=== PATIENT | female | born 1990 | race Caucasian/White ===

== ENCOUNTER 2025-04-08 19:20 | Observation (INO) | payer BC, OTHER, SELFPAY ==
--- OUTSIDE RECORDS SUMMARY | 2025-04-08 19:24 | XMS REPORT | Continuity of Care Document ---
Author Name Unknown Address [address] [facility] [place] [address] [facility] Address [address] [facility] [place] [address] Care Team Providers Care Girl Friday Name Role Phone Martha Lee Dr. Primary Care Physician FELIX RIVAS Attending Clinician Unavailable FELIX RIVAS Attending Clinician Unavailable Vika Christopher PA-C Attending Clinician [phone] Unknown, Attending Attending Clinician Unavailab VIKA Ardon Attending Clinician Unavailable Doctor Unassigned, Wiggins Attending Clinician ELYSIA Mcelroy Attending Clinician ELYSIA Carbone Attending Clinician Devi Madden, [facility] Attending Clinician UnavailMARTÍNEZ Drake Attending Clinician Unavailable LORI SCHREIBER Attending Clinician Unavailable ALLA CARBAJAL Attending Clinician Unavailable ALLA CARBAJAL Attending Clinician Unavailable VIET PEREA Attending Clinician UnavailFELIX Capps Admitting Clinician Unavailable Felix Rivas MD Admitting Clinician Payers Payer Name Policy Type Policy Number Effective Date Expirati on Date Source [employer] MEDICA[employer] [id number] 2019 00:00:00 Problems Condition Name Condition Details Condition Category Status Onset Date Resolution Date Last Treatment Date Treating Clinician Comments Source Status post bilateral salpingect nadeen Status post bilateral salpingect nadeen Disease Active 07-19 00:00: 00 [facility] Encounter for IUD removal Encounter for IUD removal Disease Active 07-19 00:00: 00 [facility] Encounter for tubal ligation Encounter for tubal ligation Disease Active 2021-07 00:00: 00 Overview: Formattin g of this note might be different from the original. Added automatic ally from request for surgery [id number] [facility] Presence of 13.5 mg levonorges trel-relea sing intrauteri ne device (IUD) Presence of 13.5 mg levonorges trel-relea sing intrauteri ne device (IUD) Disease Active 2019-07 0-14 00:00: 00 [facility] Infected nail bed of toe, unspecifie d laterality Infected nail bed of toe, unspecifie d laterality Disease Active 11-26 00:00: 00 [facility] Ingrown nail of great toe of left foot Ingrown nail of great toe of left foot Disease Active 11-26 00:00: 00 [facility] Multiparit y Multiparit y Disease Active 2018-07 2-13 00:00: 00 [facility] BMI 29.0-29.9, adult BMI 29.0-29.9, adult Disease Active - 00:00: 00 [facility] BMI 29.0-29.9, adult BMI 29.0-29.9, adult Disease Active -29 00:00: 00 [facility] Rh negative state in antepartum period Rh negative state in antepartum period Disease Active 4-15 00:00: 00 [facility] Encounter for gynecologi cintia examinatio n without abnormal finding Encounter for gynecologi cintia examinatio n without abnormal finding Problem Active [facility] Depot contracept ion Depot contracept ion Diagnosis Active [facility] Allergies, Adverse Reactions, Alerts Allergy Name Allergy Type Status Severity Reaction(s) Onset Date Inactive Date Treating Clinician Comments Source NO KNOWN ALLERGIE S Drug Class Active [facility] Social History Social Habit Start Date Stop Date Quantity Comments Source History SDOH Alcohol Frequency [facility] History SDOH Alcohol Std Drinks [facility] History SDOH Alcohol Binge [facility] Exposure to SARS-CoV-2 (event) 2022-11-20 00:00:00 2022-11-30 09:10:00 Not sure [facility] History of Social function 2022-07-19 00:00:00 2022-07-19 00:00:00 [facility] Education 2020-02-10 00:00:00 2020-02-10 00:00:00 14 [facility] Alcohol intake 2020-02-03 00:00:00 2020-02-03 00:00:00 0 /d [facility] Tobacco use and exposure 2014-10-21 00:00:00 2014-10-21 00:00:00 Smokeless tobacco non-user [facility] Alcohol Comment 2014-10-21 00:00:00 2014-10-21 00:00:00 former drinker- no longer uses [facility] Sex Assigned At 1990 00:00:00 1990 00:00:00 [facility] Smoking Status Start Date Stop Date Source Never smoked tobacco [facility] Medications Ordered Medication Name Filled Medication Name Start Date Stop Date Current Medication? Ordering Clinician Indication Dosage Frequency Signature (SIG) Comments Components Source sertraline 50 mg tablet 2- 00:00: 00 Yes 1mg Mick F Jameson Strattera 18 mg capsule 2024-0 2- 00:00: 00 Yes 1mg Mick F Jameson sertraline 50 mg tablet 2- 00:00: 00 Yes 1mg Mick F Jameson Strattera 18 mg capsule 2-11 00:00: 00 Yes 1mg Mick Barba sertraline 50 mg tablet - 00:00: 00 Yes 1mg Mick Barba sertraline 50 mg tablet 1-08 00:00: 00 Yes 1mg Mick Barba sertraline 50 mg tablet 2023-07 0-09 00:00: 00 Yes 1mg Mick Barba sertraline 50 mg tablet 9-05 00:00: 00 Yes 1mg Mick Barba sertraline 50 mg tablet 01-09 00:00: 00 Yes 1mg Mick Barba trazodone 50 mg tablet 01-09 00:00: 00 Yes 51mg Mick Barba fluticasone propionate 50 mcg/actuati on nasal spray 11-30 00:00: 00 Yes [id number] 2{spray } Use 2 Sprays in each nostril in the morning. [facility] bromphenira mine-pseudo ephedrine-D M (BROMFED DM) 2-30-10 mg/5 mL syrup 11-30 00:00: 00 Yes [id number] 5mL Take 5 mL by mouth 3 (three) times daily as needed for Cough. [facility] cetirizine 10 mg tablet 08-02 16:26: 49 Yes 10mg Take 10 mg by mouth at bedtime as needed for Allergies. [facility] cetirizine 10 mg tablet 08-02 12:54: 20 Yes 10mg Take 10 mg by mouth at bedtime as needed for Allergies. [facility] HYDROmorphO ne (DILAUDID) injection 0.2 mg 07-19 16:46: 12 Yes .2mg 0.2 mg, Slow IV Push, Q5MIN PRN, 10 doses, Starting on Mon07/19/22 at 1046, Until Discontinu ed, Routine, Pain (scale 7-10), PACU
Us e approved by (Faculty): PACU USE -ANESTHESI A SERVICE-HY DROMORPHON E INJECTIONS [facility] FENTanyl PF (SUBLIMAZE (PF)) injection 25 mcg 07-19 16:46: 12 Yes 25ug 25 mcg, Slow IV Push, Q5MIN PRN, 4 doses, Starting on Mon07/19/22 at 1046, Until Discontinu ed, Routine, Pain (scale 4-6), PACU [facility] morpHINE (4 mg/mL) injection 2 mg 07-19 16:25: 18 Yes 2mg 2 mg, Slow IV Push, Q5MIN PRN, 5 doses, Starting on Mon07/19/22 at 1025, Until Discontinu ed, Routine, Pain (scale 4-6), PACU [facility] ondansetron (ZOFRAN (PF)) injection 4 mg 07-19 16:25: 18 Yes 4mg 4 mg, Slow IV Push, PRN, 1 dose, Starting on Mon07/19/22 at 1025, Until Discontinu ed, Routine, Nausea and Vomiting (N/V), PACU [facility] bupivacaine -epinephrin e-pf (SENSORCAIN E W/EPINEPHRI NE) 0.25 %-1:200,000 injection 07-19 15:24: 00 07-19 17:24 :42 No PRN, Starting on Mon07/19/22 at 0924, Until Mon07/19/22 at 1124, Routine, Intra-op [facility] sodium chloride 0.9 % irrigation solution 07-19 15:24: 00 07-19 17:24 :42 No PRN, Starting on Mon07/19/22 at 0924, Until Mon07/19/22 at 1124, Intra-op [facility] lactated ringers IV infusion 1,000 mL 07-19 14:30: 00 07-19 14:56 :00 No 1000mL at 42 mL/hr, 1,000 mL, IV Infusion, ONCE, 1 dose, On Mon07/19/22 at 0830, Routine, DSU Pre-op [facility] cetirizine (ZYRTEC) 10 mg tablet 07-19 11:38: 48 Yes 10mg Take 10 mg by mouth at bedtime as needed for Allergies. [facility] simethicone 80 mg chewable tablet 07-19 00:00: 00 08-02 00:00 :00 No [id number] 80mg Take 1 tablet by mouth after meals and at bedtime. [facility] ibuprofen 600 mg tablet 07-19 00:00: 00 08-02 00:00 :00 No [id number] 600mg Take 1 tablet by mouth every 6 (six) hours as needed for Pain (scale 1-3) or Pain (scale 4-6). [facility] acetaminoph en (TYLENOL) 325 mg tablet 07-19 00:00: 00 08-02 00:00 :00 No [id number] 650mg Take 2 tablets by mouth every 6 (six) hours as needed for Pain (scale 1-3) or Pain (scale 4-6). [facility] HYDROcodone -acetaminop hen 5-325 mg tablet 07-19 00:00: 00 07-27 05:59 :00 No [id number] 1{tbl} Take 1 tablet by mouth every 6 (six) hours as needed for Pain (scale 7-10) for up to 7 days. Indication s: acute pain [facility] cetirizine (ZYRTEC) 10 mg tablet 07-15 10:19: 31 Yes 10mg Take 10 mg by mouth at bedtime as needed for Allergies. [facility] cetirizine HCl (ZYRTEC ORAL) 11-17 09:54: 41 11-17 00:00 :00 No Take by mouth. [facility] SERTraline (ZOLOFT) 25 mg tablet 11-17 00:00: 00 Yes [id number] 25mg Take 1 tablet by mouth daily. [facility] hydrOXYzine 25 mg tablet 11-17 00:00: 00 08-02 00:00 :00 No [id number] 25mg Take 1 tablet by mouth at bedtime. [facility] sertraline 50 mg tablet 0 9- 00:00: 00 Yes 15mg Mick Barba trazodone 50 mg tablet 0 9- 00:00: 00 Yes 1mg Mick Barba sertraline 50 mg tablet 0 8-06 00:00: 00 Yes 15mg Mick Barba trazodone 50 mg tablet 0 8-06 00:00: 00 Yes 1mg Mick Barba sertraline 50 mg tablet 0 6- 00:00: 00 Yes 15mg Mick Barba trazodone 50 mg tablet 0 6- 00:00: 00 Yes 1mg Mick Barba sertraline 50 mg tablet 5-08 00:00: 00 Yes 15mg Mick Barba trazodone 50 mg tablet 5-08 00:00: 00 Yes 1mg Mick Barba mupirocin 2 % ointment 5- 00:00: 00 11-17 00:00 :00 No [id number] Apply to area(s) 3 (three) times daily. [facility] sertraline 50 mg tablet 4-10 00:00: 00 Yes 1mg Mick Barba hydroxyzine HCl 50 mg tablet 0 4-10 00:00: 00 Yes 12mg Mick Barba sertraline 50 mg tablet 0 3-13 00:00: 00 Yes 1mg Mick Barba hydroxyzine HCl 50 mg tablet 0 3-13 00:00: 00 Yes 15mg Mick Barba sertraline 50 mg tablet 0 2-27 00:00: 00 Yes 1mg Mick Barba hydroxyzine HCl 50 mg tablet 0 2-27 00:00: 00 Yes 1mg Mick Barba sertraline 25 mg tablet 0 2-13 00:00: 00 Yes 1mg Mick Barba hydroxyzine HCl 25 mg tablet 0 2-13 00:00: 00 Yes 1mg Mick Barba hydrOXYzine 25 mg tablet 0 2-13 00:00: 00 00:00 :00 No 50mg Take 50 mg by mouth at bedtime. [facility] SERTraline 25 mg tablet 213 00:00: 00 11-17 00:00 :00 No 50mg Take 50 mg by mouth every morning. [facility] acetaminoph en 650 mg CR tablet 11-26 00:00: 00 10-21 00:00 :00 No [id number] 650mg Take 1 tablet by mouth every 8 (eight) hours as needed for Pain or Fever. [facility] hydroxyzine HCl 50 mg tablet 02-05 00:00: 00 Yes 12mg Mick Negar Barba Zoloft 50 mg tablet 02-05 00:00: 00 Yes 1mg Mick Negar Barba hydroxyzine HCl 50 mg tablet 01-03 00:00: 00 Yes 51mg Mick Negar Barba Zoloft 50 mg tablet 01-03 00:00: 00 Yes 1mg Mick Barba cetirizine 10 mg capsule 12-04 00:00: 00 Yes 1mg Mick Barba hydroxyzine HCl 50 mg tablet 12-04 00:00: 00 Yes 51mg Mick Negar Barba Zoloft 50 mg tablet 12-04 00:00: 00 Yes 1mg Mick Barba Nexplanon Nexplanon Yes Jason Rejuan m not defined [facility] Immunizations Ordered Immunization Name Filled Immunization Name Date Status Comments Source Influenza Virus Vaccine Quad .5 mL IM 6+ MO (FLUZONE/FLULAVAL/F LUARIX) 2021-11-30 00:00:00 Completed [facility] Influenza Virus Vaccine 2021-11-30 00:00:00 Completed [facility] TDAP (ADACEL) VACCINE 2021-11-30 00:00:00 Completed [facility] Rho (d) Immune Globulin 2021-11-30 00:00:00 Completed [facility] Rho (d) Immune Globulin 2021-11-30 00:00:00 Completed [facility] Influenza Virus Vaccine 2020-04-20 00:00:00 Completed [facility] Influenza Virus Vaccine 2020-04-20 00:00:00 Completed [facility] Influenza Virus Vaccine 2020-04-20 00:00:00 Completed [facility] Influenza Virus Vaccine 2020-04-20 00:00:00 Completed [facility] Influenza Virus Vaccine 2020-04-20 00:00:00 Completed [facility] Influenza Virus Vaccine 2020-04-20 00:00:00 Completed [facility] Influenza Virus Vaccine 2020-04-20 00:00:00 Completed [facility] Influenza Virus Vaccine 2020-04-20 00:00:00 Completed [facility] Influenza Virus Vaccine 2020-04-20 00:00:00 Completed [facility] Influenza Virus Vaccine 2020-04-20 00:00:00 Completed [facility] Influenza Virus Vaccine 2020-04-20 00:00:00 Completed [facility] Influenza Virus Vaccine 2020-04-20 00:00:00 Completed [facility] Influenza Virus Vaccine 2020-04-20 00:00:00 Completed [facility] Influenza Virus Vaccine 2020-04-20 00:00:00 Completed [facility] Influenza Virus Vaccine 2020-04-20 00:00:00 Completed [facility] Influenza Virus Vaccine 2020-04-20 00:00:00 Completed [facility] Influenza Virus Vaccine 2020-04-20 00:00:00 Completed [facility] Rho (d) Immune Globulin 2020-02-11 00:00:00 Completed [facility] Rho (d) Immune Globulin 2020-02-11 00:00:00 Completed [facility] Rho (d) Immune Globulin 2020-02-11 00:00:00 Completed [facility] Rho (d) Immune Globulin 2020-02-11 00:00:00 Completed [facility] Rho (d) Immune Globulin 2020-02-11 00:00:00 Completed [facility] Rho (d) Immune Globulin 2020-02-11 00:00:00 Completed [facility] Rho (d) Immune Globulin 2020-02-11 00:00:00 Completed [facility] Rho (d) Immune Globulin 2020-02-11 00:00:00 Completed [facility] Rho (d) Immune Globulin 2020-02-11 00:00:00 Completed [facility] Rho (d) Immune Globulin 2020-02-11 00:00:00 Completed [facility] Rho (d) Immune Globulin 2020-02-11 00:00:00 Completed [facility] Rho (d) Immune Globulin 2020-02-11 00:00:00 Completed [facility] Rho (d) Immune Globulin 2020-02-11 00:00:00 Completed [facility] Rho (d) Immune Globulin 2020-02-11 00:00:00 Completed [facility] Rho (d) Immune Globulin 2020-02-11 00:00:00 Completed [facility] Rho (d) Immune Globulin 2020-02-11 00:00:00 Completed [facility] Rho (d) Immune Globulin 2020-02-11 00:00:00 Completed [facility] Influenza Virus Vaccine Quad .5 mL IM 6+ MO (FLUZONE/FLULAVAL/F LUARIX) 2020-02-07 00:00:00 Completed [facility] Influenza Virus Vaccine 2020-02-07 00:00:00 Completed [facility] TDAP (ADACEL) VACCINE 2020-02-07 00:00:00 Completed [facility] Rho (d) Immune Globulin 2020-02-07 00:00:00 Completed [facility] Rho (d) Immune Globulin 2019-11-20 00:00:00 Completed [facility] Rho (d) Immune Globulin 2019-11-20 00:00:00 Completed [facility] Rho (d) Immune Globulin 2019-11-20 00:00:00 Completed [facility] Rho (d) Immune Globulin 2019-11-20 00:00:00 Completed [facility] Rho (d) Immune Globulin 2019-11-20 00:00:00 Completed [facility] Rho (d) Immune Globulin 2019-11-20 00:00:00 Completed [facility] Rho (d) Immune Globulin 2019-11-20 00:00:00 Completed [facility] Rho (d) Immune Globulin 2019-11-20 00:00:00 Completed [facility] Rho (d) Immune Globulin 2019-11-20 00:00:00 Completed [facility] Rho (d) Immune Globulin 2019-11-20 00:00:00 Completed [facility] Rho (d) Immune Globulin 2019-11-20 00:00:00 Completed [facility] Rho (d) Immune Globulin 2019-11-20 00:00:00 Completed [facility] Rho (d) Immune Globulin 2019-11-20 00:00:00 Completed [facility] Rho (d) Immune Globulin 2019-11-20 00:00:00 Completed [facility] Rho (d) Immune Globulin 2019-11-20 00:00:00 Completed [facility] Rho (d) Immune Globulin 2019-11-20 00:00:00 Completed [facility] Rho (d) Immune Globulin 2019-11-20 00:00:00 Completed [facility] TDAP (ADACEL) VACCINE 2019-11-18 00:00:00 Completed [facility] TDAP (ADACEL) VACCINE 2019-11-18 00:00:00 Completed [facility] TDAP (ADACEL) VACCINE 2019-11-18 00:00:00 Completed [facility] TDAP (ADACEL) VACCINE 2019-11-18 00:00:00 Completed [facility] TDAP (ADACEL) VACCINE 2019-11-18 00:00:00 Completed [facility] TDAP (ADACEL) VACCINE 2019-11-18 00:00:00 Completed [facility] TDAP (ADACEL) VACCINE 2019-11-18 00:00:00 Completed [facility] TDAP (ADACEL) VACCINE 2019-11-18 00:00:00 Completed [facility] TDAP (ADACEL) VACCINE 2019-11-18 00:00:00 Completed [facility] TDAP (ADACEL) VACCINE 2019-11-18 00:00:00 Completed [facility] TDAP (ADACEL) VACCINE 2019-11-18 00:00:00 Completed [facility] TDAP (ADACEL) VACCINE 2019-11-18 00:00:00 Completed [facility] TDAP (ADACEL) VACCINE 2019-11-18 00:00:00 Completed [facility] TDAP (ADACEL) VACCINE 2019-11-18 00:00:00 Completed [facility] TDAP (ADACEL) VACCINE 2019-11-18 00:00:00 Completed [facility] TDAP (ADACEL) VACCINE 2019-11-18 00:00:00 Completed [facility] TDAP (ADACEL) VACCINE 2019-11-18 00:00:00 Completed [facility] Influenza Virus Vaccine Quad .5 mL IM 6+ MO 2019-06-21 00:00:00 Completed [facility] Influenza Virus Vaccine 2019-06-21 00:00:00 Completed [facility] Influenza Virus Vaccine Quad .5 mL IM 6+ MO 2019-06-21 00:00:00 Completed [facility] Influenza Virus Vaccine 2019-06-21 00:00:00 Completed [facility] Influenza Virus Vaccine Quad .5 mL IM 6+ MO 2019-06-21 00:00:00 Completed [facility] Influenza Virus Vaccine 2019-06-21 00:00:00 Completed [facility] Influenza Virus Vaccine Quad .5 mL IM 6+ MO 2019-06-21 00:00:00 Completed [facility] Influenza Virus Vaccine 2019-06-21 00:00:00 Completed [facility] Influenza Virus Vaccine Quad .5 mL IM 6+ MO 2019-06-21 00:00:00 Completed [facility] Influenza Virus Vaccine 2019-06-21 00:00:00 Completed [facility] Influenza Virus Vaccine Quad .5 mL IM 6+ MO 2019-06-21 00:00:00 Completed [facility] Influenza Virus Vaccine 2019-06-21 00:00:00 Completed [facility] Influenza Virus Vaccine Quad .5 mL IM 6+ MO 2019-06-21 00:00:00 Completed [facility] Influenza Virus Vaccine 2019-06-21 00:00:00 Completed [facility] Influenza Virus Vaccine Quad .5 mL IM 6+ MO 2019-06-21 00:00:00 Completed [facility] Influenza Virus Vaccine 2019-06-21 00:00:00 Completed [facility] Influenza Virus Vaccine Quad .5 mL IM 6+ MO 2019-06-21 00:00:00 Completed [facility] Influenza Virus Vaccine 2019-06-21 00:00:00 Completed [facility] Influenza Virus Vaccine Quad .5 mL IM 6+ MO 2019-06-21 00:00:00 Completed [facility] Influenza Virus Vaccine 2019-06-21 00:00:00 Completed [facility] Influenza Virus Vaccine Quad .5 mL IM 6+ MO 2019-06-21 00:00:00 Completed [facility] Influenza Virus Vaccine 2019-06-21 00:00:00 Completed [facility] Influenza Virus Vaccine Quad .5 mL IM 6+ MO 2019-06-21 00:00:00 Completed [facility] Influenza Virus Vaccine 2019-06-21 00:00:00 Completed [facility] Influenza Virus Vaccine Quad .5 mL IM 6+ MO 2019-06-21 00:00:00 Completed [facility] Influenza Virus Vaccine 2019-06-21 00:00:00 Completed [facility] Influenza Virus Vaccine Quad .5 mL IM 6+ MO 2019-06-21 00:00:00 Completed [facility] Influenza Virus Vaccine 2019-06-21 00:00:00 Completed [facility] Influenza Virus Vaccine Quad .5 mL IM 6+ MO 2019-06-21 00:00:00 Completed [facility] Influenza Virus Vaccine 2019-06-21 00:00:00 Completed [facility] Influenza Virus Vaccine Quad .5 mL IM 6+ MO 2019-06-21 00:00:00 Completed [facility] Influenza Virus Vaccine 2019-06-21 00:00:00 Completed [facility] Influenza Virus Vaccine Quad .5 mL IM 6+ MO 2019-06-21 00:00:00 Completed [facility] Influenza Virus Vaccine 2019-06-21 00:00:00 Completed [facility] Influenza Virus Vaccine 2009-04-09 00:00:00 Completed [facility] HPV 2009-03-19 00:00:00 Completed [facility] HPV 2009-01-16 00:00:00 Completed [facility] TDAP 2009-01-16 00:00:00 Completed [facility] Vital Signs Vital Name Observation Time Observation Value Comments S ource Systolic blood pressure 2022-11-30 14:25:00 130 mm[Hg] [facility] Diastolic blood pressure 2022-11-30 14:25:00 87 mm[Hg] [facility] Heart rate 2022-11-30 14:25:00 86 /min [facility] Body temperature 2022-11-30 14:25:00 36.89 Ashtyn [facility] Respiratory rate 2022-11-30 14:25:00 17 /min [facility] Body height 2022-11-30 14:25:00 149.9 cm [facility] Body weight 2022-11-30 14:25:00 56.291 kg [facility] BMI 2022-11-30 14:25:00 25.07 kg/m2 [facility] Oxygen saturation in Arterial blood by Pulse oximetry 2022-11-30 14:25:00 98 /min [facility] Systolic blood pressure 2022-08-02 18:52:00 119 mm[Hg] [facility] Diastolic blood pressure 2022-08-02 18:52:00 78 mm[Hg] [facility] Heart rate 2022-08-02 18:52:00 77 /min [facility] Body temperature 2022-08-02 18:52:00 36.67 Ashtyn [facility] Body weight 2022-08-02 18:52:00 52.345 kg [facility] BMI 2022-08-02 18:52:00 23.31 kg/m2 [facility] Heart rate 2022-07-19 17:12:00 72 /min [facility] Oxygen saturation in Arterial blood by Pulse oximetry 2022-07-19 17:12:00 100 /min [facility] Respiratory rate 2022-07-19 17:11:00 19 /min [facility] Systolic blood pressure 2022-07-19 17:09:00 102 mm[Hg] [facility] Diastolic blood pressure 2022-07-19 17:09:00 48 mm[Hg] [facility] Body temperature 2022-07-19 16:19:00 36.39 Ashtyn [facility] Body weight 2022-07-15 16:00:00 54.432 kg [facility] BMI 2022-07-15 16:00:00 24.24 kg/m2 [facility] Heart rate 2022-07-19 17:12:00 72 /min [facility] Oxygen saturation in Arterial blood by Pulse oximetry 2022-07-19 17:12:00 100 /min [facility] Respiratory rate 2022-07-19 17:11:00 19 /min [facility] Systolic blood pressure 2022-07-19 17:09:00 102 mm[Hg] [facility] Diastolic blood pressure 2022-07-19 17:09:00 48 mm[Hg] [facility] Body temperature 2022-07-19 16:19:00 36.39 Ashtyn [facility] Body weight 2022-07-15 16:00:00 54.432 kg [facility] BMI 2022-07-15 16:00:00 24.24 kg/m2 [facility] Systolic blood pressure 2022-07-07 21:32:00 105 mm[Hg] [facility] Diastolic blood pressure 2022-07-07 21:32:00 66 mm[Hg] [facility] Heart rate 2022-07-07 21:32:00 57 /min Un[facility] Body temperature 2022-07-07 21:32:00 36.83 Asht[facility] Body height 2022-07-07 21:32:00 149.9 cm [facility] Body weight 2022-07-07 21:32:00 54.432 kg [facility] BMI 2022-07-07 21:32:00 24.24 kg/m2 [facility] Systolic blood pressure 2022-06-07 20:33:00 105 mm[Hg] [facility] Diastolic blood pressure 2022-06-07 20:33:00 68 mm[Hg] [facility] Heart rate 2022-06-07 20:33:00 66 /min Unive [facility] Body temperature 2022-06-07 20:33:00 36.72 Ashtyn [facility] Body height 2022-06-07 20:33:00 149.9 cm [facility] Body weight 2022-06-07 20:33:00 54.976 kg [facility] BMI 2022-06-07 20:33:00 24.48 kg/m2 [facility] Systolic blood pressure 2021-11-17 15:05:00 112 mm[Hg] [facility] Diastolic blood pressure 2021-11-17 15:05:00 75 mm[Hg] [facility] Heart rate 2021-11-17 15:05:00 69 /min [facility] Body temperature 2021-11-17 15:05:00 36.94 Ashtyn [facility] Respiratory rate 2021-11-17 15:05:00 18 /min [facility] Body height 2021-11-17 15:05:00 149.9 cm [facility] Body weight 2021-11-17 15:05:00 60.601 kg [facility] BMI 2021-11-17 15:05:00 26.98 kg/m2 [facility] BP Diastolic 2024-08-13 15:00:00 76 mm[Hg] Riley phen F Jameson Weight Measured 2024-08-13 15:00:00 139.00 pounds Mick F Jameson Height Measured 2024-08-13 15:00:00 60.43 inches Mick F Jameson Body Temperature 2024-08-13 15:00:00 97.70 degrees Mick F Jameson Heart Rate 2024-08-13 15:00:00 78.00 /min Nanci en F Jameson Respiratory Rate 2024-08-13 15:00:00 16.00 /min Mick F Jameson BP Systolic 2024-08-13 15:00:00 124 mm[Hg] Step hen F Jameson BP Systolic 2018-12-04 13:01:00 123 mm[Hg] Step hen F Jameson BP Diastolic 2018-12-04 13:01:00 75 mm[Hg] Riley phen F Jameson Weight Measured 2018-12-04 13:01:00 144.50 pounds Mick F Jameson Height Measured 2018-12-04 13:01:00 60.43 inches Mick F Jameson Body Temperature 2018-12-04 13:01:00 98.90 degrees Mick F Jameson Heart Rate 2018-12-04 13:01:00 104.00 /min Step hen F Jameson Respiratory Rate 2018-12-04 13:01:00 18.00 /min Mick F Jameson Procedures Procedure Date / Time Performed Performing Clinician Source POCT MOLECULAR STREP 2022-11-30 14:20:00 Unknown, Atte nding [facility] CONSENT/REFUSAL FOR DIAGNOSIS AND TREATMENT 2022-11-30 14:09:18 Doctor Unassigned, Wiggins [facility] STERILIZATION CONSENT FORM 2022-08-03 06:01:00 Doctor Unassigned, Wiggins [facility] LAPAROSCOPIC SALPINGECTOMY 2022-07-19 14:44:00 Felix Rivas [facility] INTRAUTERINE DEVICE REMOVAL 2022-07-19 14:44:00 Felix Rivas [facility] ASSIGNMENT OF BENEFITS 2022-07-18 14:16:23 Docto r Unassigned, Wiggins [facility] DSU PRE-OP 2022-07-07 06:01:00 Doctor Unass igned, Wiggins [facility] STERILIZATION CONSENT FORM 2022-06-07 06:01:00 Doctor Unassigned, Wiggins [facility] Encounters Start Date/Time End Date/Time Encounter Type Admission Type Attending [facility] Care Department Encounter ID Source 2021-05-07 09:59:43 Outpatient P [email or web address] YUNG [id number] [facility] 2024-09-24 14:15:00 2024-09-24 14:15:00 Outpatient R FELIX RIVAS VIEN [facility] [id number] [facility] 2024-08-13 14:52:11 2024-08-13 14:52:11 Outpatient [facility] [id number] Mick Negar Jameson 2024-08-13 00:00:00 2024-08-13 00:00:00 Outpatient Visit S[facility] [id number] Mick Negar Jameson 2024-08-06 11:06:12 2024-08-06 11:06:12 Outpatient SFA SFA [id number] Mick Negar Jameson 2024-05-14 11:42:07 2024-05-14 11:42:07 Outpatient SFA SFA [id number] Mick Barba 2024-04-17 15:05:47 2024-04-17 15:05:47 Outpatient SFA SFA [id number] Mick Barba 2024-03-13 17:44:10 2024-03-13 17:44:10 Outpatient [facility] [id number] Mick Barba 2024-01-10 17:10:31 2024-01-10 17:10:31 Outpatient [facility] [id number] Mick Barba 2023-12-06 11:28:04 2023-12-06 11:28:04 Outpatient [facility] [id number] Mick Barba 2022-12-27 00:00:00 2022-12-27 00:00:00 Refill Vika Christopher [facility] 1.2.840.114 350.1.13.10 4.2.7.2.686 [id number] [facility] 2022-11-30 09:20:00 2022-11-30 09:40:00 Urgent Care Vika Christopher Unknown, Attending [facility] 1.2.840.114 350.1.13.10 4.2.7.2.686 [id number] [facility] 2022-11-30 09:20:00 2022-11-30 09:20:00 Outpatient Grover GERSONVIKA KOEHLER [facility] [id number] [facility] 2022-11-30 00:00:00 2022-11-30 00:00:00 Orders Only Doctor Unassigned, Wiggins [facility] 1.2.840.114 350.1.13.10 4.2.7.2.686 [id number] [facility] 2022-11-21 10:30:00 2022-11-21 10:30:00 Outpatient ELYSIA HARRINGTON MARISOL [facility] [id number] [facility] 2022-08-03 00:00:00 2022-08-03 00:00:00 Orders Only Doctor Unassigned, Wiggins [facility] 1.2.840.114 350.1.13.10 4.2.7.2.686 [id number] [facility] 2022-08-02 13:00:00 2022-08-02 13:30:00 Office Visit Felix Rivas [facility] BUILD[facility] 1.2.840.114 350.1.13.10 4.2.7.2.686 [id number] [facility] 2022-08-02 13:00:00 2022-08-02 13:00:00 Outpatient R FELIX RIVAS [facility] [id number] [facility] 2022-07-19 09:30:00 2022-07-19 12:15:00 Surgery Felix Rivas [facility] [place] 1.2840.114 350.1.13.10 4.2.7.2.686 [id number] [facility] 2022-07-19 08:18:00 2022-07-19 11:36:00 Outpatient R FELIX RIVAS [facility] [[email or web address] [employer] [id number] [facility] 2022-07-19 08:18:00 2022-07-19 11:36:00 Hospital Encounter Felix Rivas [facility] [place] 1.2840.114 350.1.13.10 4.2.7.2.686 [id number] [facility] 2022-07-19 00:00:00 2022-07-19 00:00:00 Telephone Felix Rivas [facility] BUILDING 1.2.840.114 350.1.13.10 4.2.7.2.686 [id number] [facility] 2022-07-18 08:15:00 2022-07-18 08:30:00 Managing Director Visit Pob, Adc Lab Main Felix Rivas Cam [facility] 1..840.114 350.1.13.10 4.2.7.2.686 [id number] [facility] 2022-07-18 08:15:00 2022-07-18 08:15:00 Outpatient R RIVASFELIX [facility] [id number] [facility] 2022-07-18 00:00:00 2022-07-18 00:00:00 Orders Only Doctor Unassigned, Wiggins [facility] 1.840.114 350.1.13.10 4.2.7.2.686 [id number] [facility] 2022-07-13 13:00:00 2022-07-13 13:00:00 Outpatient R ROB [facility] [id number] [facility] 2022-07-07 15:00:00 2022-07-07 15:45:46 [id number] 2022-07-07 15:00:00 2022-07-07 15:45:46 Office Visit Felix Rivas [facility] 1.840.114 350.1.13.10 4.2.7.2.686 [id number] [facility] 2022-07-07 00:00:00 2022-07-07 00:00:00 Orders Only Doctor Unassigned, Wiggins [facility] 1.2840.114 350.1.13.10 4.2.7.2.686 [id number] [facility] 2022-07-06 00:00:00 2022-07-06 00:00:00 Telephone Rob Felix [facility] 1.2.840.114 350.1.13.10 4.2.7.2.686 [id number] [facility] 2022-06-08 00:00:00 2022-06-08 00:00:00 Prep For Surgery Felix Rivas Elvis [facility] BUILD[facility] 1.2.840.114 350.1.13.10 4.2.7.2.686 [id number] [facility] 2022-06-07 14:30:00 2022-06-07 15:25:54 Outpatient R ROB FELIX [facility] [id number] [facility] 2022-06-07 14:30:00 2022-06-07 15:25:54 Office Visit Felix Rivas Elvis [facility] BUILD[facility] 1.2840.114 350.1.13.10 4.2.7.2.686 [id number] [facility] 2022-06-07 00:00:00 2022-06-07 00:00:00 Orders Only Doctor Unassigned, Wiggins [facility] 1.2.840.114 350.1.13.10 4.2.7.2.686 [id number] [facility] 2021-11-30 00:00:00 2021-11-30 00:00:00 Patient Secure Msg Doctor Unassigned, Wiggins [facility] 1.2840.114 350.1.13.10 4.2.7.2.686 [id number] [facility] 2021-11-17 10:00:00 2021-11-17 11:10:22 Office Visit Vika Christopher [facility] 1.2.840.114 350.1.13.10 4.2.7.2.686 [id number] [facility] 2021-11-17 10:00:00 2021-11-17 11:10:22 Outpatient R VIKA CHRISTOPHER [facility] [id number] [facility] 2021-11-17 10:00:00 2021-11-17 10:00:00 Outpatient R CANDI VIKA [facility] [id number] [facility] 2020-11-10 14:00:00 2020-11-10 14:00:00 Outpatient R MARTÍNEZ MARIA [facility] [id number] [facility] 2020-10-21 14:30:00 2020-10-21 14:30:00 Outpatient R VIKA CHRISTOPHER [facility] [id number] [facility] 2020-09-07 09:30:00 2020-09-07 09:30:00 Outpatient R CANDI VIKA [facility] [id number] [facility] 2020-07-27 12:00:00 2020-07-27 12:00:00 Outpatient R LORI SCHREIBER [facility] [id number] [facility] 2020-07-05 15:20:00 2020-07-05 15:20:00 Outpatient R MARTÍNEZ MARIA [facility] [id number] [facility] 2020-04-22 10:30:00 2020-04-22 10:30:00 Outpatient R FELIX RIVAS [facility] [id number] [facility] 2020-03-25 10:00:00 2020-03-25 10:00:00 Outpatient R FELIX RIVAS [facility] [id number] [facility] 2020-03-09 11:30:00 2020-03-09 11:30:00 Outpatient R VIKA CHRISTOPHER [facility] [id number] [facility] 2020-02-24 08:00:00 2020-02-24 08:00:00 Outpatient R [facility] [id number] [facility] 2020-02-17 15:00:00 2020-02-17 15:00:00 Outpatient R [facility] [id number] [facility] 2020-02-07 08:30:00 2020-02-07 08:30:00 Outpatient R [facility] [id number] [facility] 2020-02-07 00:00:00 2020-02-07 00:00:00 Patient Secure Msg Doctor Unassigned, Wiggins [facility] 1.2.840.114 350.1.13.10 4.2.7.2.686 [id number] [facility] 2020-02-03 14:45:00 2020-02-03 14:45:00 Outpatient R FELIX RIVAS [facility] [id number] [facility] 2020-01-31 08:30:00 2020-01-31 08:30:00 Outpatient P [facility] [id number] [facility] 2020-01-27 16:15:00 2020-01-27 16:15:00 Outpatient R VIKA CHRISTOPHER [facility] [id number] [facility] 2020-01-20 08:15:00 2020-01-20 08:15:00 Outpatient R FELIX RIVAS [facility] [id number] [facility] 2020-01-06 14:00:00 2020-01-06 14:00:00 Outpatient R [facility] [id number] [facility] 2020-01-06 10:30:00 2020-01-06 10:30:00 Outpatient R [facility] [id number] [facility] 2020-01-01 11:00:00 2020-01-01 11:00:00 Outpatient P ALLA CARBAJAL SHANNON [facility] [id number] [facility] 2019-12-31 09:00:00 2019-12-31 09:00:00 Outpatient R [facility] [id number] [facility] 2019-12-30 09:00:00 2019-12-30 09:00:00 Outpatient R [facility] [id number] [facility] 2019-12-25 09:00:00 2019-12-25 09:00:00 Outpatient P [facility] [id number] [facility] 2019-12-23 15:30:00 2019-12-23 15:30:00 Outpatient R FELIX RIVAS [facility] [id number] [facility] 2019-12-18 11:15:00 2019-12-18 11:15:00 Outpatient ALLA ALAS SHANNON [facility] [id number] [facility] 2019-12-11 13:00:00 2019-12-11 13:00:00 Outpatient ALLA ALAS SHANNON [facility] [id number] [facility] 2019-12-05 14:00:00 2019-12-05 14:00:00 Outpatient R VIKA CHRISTOPHER [facility] [id number] [facility] 2019-12-05 11:30:00 2019-12-05 11:30:00 Outpatient R VIKA CHRISTOPHER [facility] [id number] [facility] 2019-11-27 11:00:00 2019-11-27 11:00:00 Outpatient ALLA ALAS SHANNON [facility] [id number] [facility] 2019-11-25 08:00:00 2019-11-25 08:00:00 Outpatient R [facility] [id number] [facility] 2019-11-20 11:15:00 2019-11-20 11:15:00 Outpatient ALLA ALAS SHANNON [facility] [id number] [facility] 2019-11-19 08:15:00 2019-11-19 08:15:00 Outpatient R [facility] [id number] [facility] 2019-11-18 08:30:00 2019-11-18 08:30:00 Outpatient R [facility] [id number] [facility] 2019-11-13 11:00:00 2019-11-13 11:00:00 Outpatient ALLA ALAS SHANNON [facility] [id number] [facility] 2019-11-07 08:30:00 2019-11-07 08:30:00 Outpatient R VIET PEREA [facility] [id number] [facility] 2019-11-06 11:30:00 2019-11-06 11:30:00 Outpatient R [facility] [id number] [facility] 2019-10-29 11:30:00 2019-10-29 11:30:00 Outpatient P [facility] [id number] [facility] 2019-10-24 09:30:00 2019-10-24 09:30:00 Outpatient Grover NIETORODO VIKA [facility] [id number] [facility] 2019-10-23 10:45:00 2019-10-23 10:45:00 Outpatient Grover CHRISTOPHER VIKA [facility] [id number] [facility] 2019-09-27 09:15:00 2019-09-27 09:15:00 Outpatient P FELXI RIVAS [facility] [id number] [facility] 2019-09-25 11:30:00 2019-09-25 11:30:00 Outpatient R FELIX RIVAS [facility] [id number] [facility] 2017-12-25 14:30:00 2017-12-25 14:30:00 Outpatient [facility] [id number] [facility] 2017-09-27 11:12:00 2017-09-27 11:12:00 Outpatient [facility] [id number] [facility] 2017-09-25 14:00:00 2017-09-25 14:00:00 Outpatient [facility] [id number] [facility] Results Test Description Test Time Test Comments Results Result Co mments Source TSH, THIRD [id number] 05:38:23* Test Item Value Reference Range Interpretation Comme nts TSH, THIRD GENERATION (test code = 2821) 1.130 UIU/ML 0.400-4.100 COMPREHENSIVE METABOLIC [id number] 05:12:34* Test Item Value Reference Range Interpretation Comme nts GLUCOSE (test code = 2217) 89 MG/DL 70-99 BUN (test code = 2208) 13 MG/DL 6-20 CREATININE (test code = 2214) 0.53 MG/DL 0.60-1.30 L eGFR (2020 CKD-EPI) (test code = ) 126 ML/MIN/1.73 >60 CALC BUN/CREAT (test code = 2234) 25 RATIO 6-28 SODIUM (test code = 2230) 139 MEQ/L 133-146 POTASSIUM (test code = 2227) 4.4 MEQ/L 3.5-5.4 CHLORIDE (test code = 2214) 104 MEQ/L 95-107 CARBON DIOXIDE (test code = 2205) 23 MEQ/L 19-31 CALCIUM (test code = 2208) 8.9 MG/DL 8.5-10.5 PROTEIN, TOTAL (test code = 2228) 7.1 G/DL 6.1-8.3 ALBUMIN (test code = 2200) 4.7 G/DL 3.5-5.2 CALC GLOBULIN (test code = 2239) 2.4 G/DL 1.9-3.7 CALC A/G RATIO (test code = 2233) 2.0 RATIO 1.0-2.6 BILIRUBIN, TOTAL (test code = 2206) 0.5 MG/DL <=1.2 ALKALINE PHOSPHATASE (test code = 2203) 57 U/L 40-114 AST (test code = 2217) 17 U/L 9-40 ALT (test code = 2218) 14 U/L 5-40 LIPID [id number] 05:12:34* Test Item Value Reference Range Interpretation Comme nts CHOLESTEROL (test code = 221) 218 MG/DL <200 H TRIGLYCERIDES (test code = 2) 72 MG/DL <150 HDL CHOLESTEROL (test code = 2219) 62 MG/DL >39 CALC LDL CHOL (test code = 2236) 140 MG/DL <100 H NOTE: CALCULATED LDL IS BASED ON VANDANA-DA SILVA METHOD WHICHINCLUDES ADJUSTABLE TRIGLYCERIDE:VLDL CHOLESTEROL RATIO.THIS FACTOR VARIES BY MEASURED TRIGLYCERIDE AND NON-HDLCHOLESTEROL CONCENTRATIONS WITH INCREASED CALCULATED LDL SEENIN HIGHER TRIGLYCERIDE OR LOWER NON-HDL SPECIMENS. FOR MOREINFORMATION, SEE CLIENT ANNOUNCEMENT AT [email or web address] RISK RATIO LDL/HDL (test code = 2238) 2.26 RATIO <3.22 CBC W/AUTO DIFF WITH [id number] 04:15:40* Test Item Value Reference Range Interpretation Comme nts WBC (test code = 1001) 4.5 K/UL 3.5-11.0 RBC (test code = 1002) 4.65 M/UL 3.80-5.40 HEMOGLOBIN (test code = 1003) 13.2 G/DL 11.5-15.5 HEMATOCRIT (test code = 1004) 40.9 % 34.0-45.0 MCV (test code = 1005) 88.0 fL 80.0-99.0 MCH (test code = 1006) 28.4 PG 25.0-33.0 MCHC (test code = 1007) 32.3 G/DL 31.0-36.0 RDW (test code = 1038) 13.0 % 11.5-15.0 NEUTROPHILS (test code = 1008) 57.2 % LYMPHOCYTES (test code = 1010) 33.3 % MONOCYTES (test code = 1011) 6.2 % EOSINOPHILS (test code = 1012) 2.2 % BASOPHILS (test code = 1013) 0.7 % IMMATURE GRANULOCYTES (test code = 1036) 0.4 % NUCLEATED RBCS (test code = 1065) 0.0 /100 WBC'S See_Comment [Automated messa ge] The system which generated this result transmitted reference range: 0.0. The reference range was not used to interpret this result as normal/abnormal. PLATELET COUNT (test code = 1015) 241 K/UL 130-400 ABSOLUTE NEUTROPHILS (test code = 1066) 2.57 K/UL 1.50-7.50 ABSOLUTE LYMPHOCYTES (test code = 1067) 1.50 K/UL 1.00-4.00 ABSOLUTE MONOCYTES (test code = 1068) 0.28 K/UL 0.20-1.00 ABSOLUTE EOSINOPHILS (test code = 1040) 0.10 K/UL 0.00-0.50 ABSOLUTE BASOPHILS (test code = 1069) 0.03 K/UL 0.00-0.20 ABS IMMATURE GRANULOCYTES (test code = 1020) 0.02 K/UL 0.00-0.10 ABS NUCLEATED RBCS (test code = 95888) 0.00 K/UL 0.00-0.11 CBC W/AUTO [id number] 00:00:00* Test Item Value Reference Range Interpretation Comme nts WBC (test code = 1001) 4.5 K/UL RBC (test code = 1002) 4.65 M/UL HEMOGLOBIN (test code = 1003) 13.2 G/DL HEMATOCRIT (test code = 1004) 40.9 % MCV (test code = 1005) 88.0 fL MCH (test code = 1006) 28.4 PG MCHC (test code = 1007) 32.3 G/DL RDW (test code = 1038) 13.0 % NEUTROPHILS (test code = 1008) 57.2 % LYMPHOCYTES (test code = 1010) 33.3 % MONOCYTES (test code = 1011) 6.2 % EOSINOPHILS (test code = 1012) 2.2 % BASOPHILS (test code = 1013) 0.7 % IMMATURE GRANULOCYTES (test code = 1036) 0.4 % NUCLEATED RBCS (test code = 1065) 0.0 /100WBC'S PLATELET COUNT (test code = 1015) 241 K/UL ABSOLUTE NEUTROPHILS (test c ode = 1066) 2.57 K/UL ABSOLUTE LYMPHOCYTES (test c ode = 1067) 1.50 K/UL ABSOLUTE MONOCYTES (test cod e = 1068) 0.28 K/UL ABSOLUTE EOSINOPHILS (test c ode = 1040) 0.10 K/UL ABSOLUTE BASOPHILS (test cod e = 1069) 0.03 K/UL ABS IMMATURE GRANULOCYTES (t est code = 1020) 0.02 K/UL ABS NUCLEATED RBCS (test cod e = 84507) 0.00 K/UL Mick BarbaCOMPREHENSIVE METABOLIC [id number] 00:00:00* Test Item Value Reference Range Interpretation Comme nts GLUCOSE (test code = 2217) 89 MG/DL BUN (test code = 2208) 13 MG/DL CREATININE (test code = 2214) 0.53 MG/DL eGFR (2020 CKD-EPI) (test code = 90860) 126 ML/MIN/1.73 CALC BUN/CREAT (test code = 2235) 25 RATIO SODIUM (test code = 2231) 139 MEQ/L POTASSIUM (test code = 2228) 4.4 MEQ/L CHLORIDE (test code = 2215) 104 MEQ/L CARBON DIOXIDE (test code = 2206) 23 MEQ/L CALCIUM (test code = 2209) 8.9 MG/DL PROTEIN, TOTAL (test code = 2229) 7.1 G/DL ALBUMIN (test code = 2201) 4.7 G/DL CALC GLOBULIN (test code = 2240) 2.4 G/DL CALC A/G RATIO (test code = 2234) 2.0 RATIO BILIRUBIN, TOTAL (test code = 2207) 0.5 MG/DL ALKALINE PHOSPHATASE (test code = 2204) 57 U/L AST (test code = 2218) 17 U/L ALT (test code = 2219) 14 U/L Mick BarbaTSH, THIRD [id number] 00:00:00* Test Item Value Reference Range Interpretation Comme nts TSH, THIRD GENERATION (test code = 2821) 1.130 UIU/ML Mick BarbaLIPID [id number] 00:00:00* Test Item Value Reference Range Interpretation Comme nts CHOLESTEROL (test code = 2210) 218 MG/DL TRIGLYCERIDES (test code = 2232) 72 MG/DL HDL CHOLESTEROL (test code = 2220) 62 MG/DL CALC LDL CHOL (test code = 2237) 140 MG/DL RISK RATIO LDL/HDL (test cod e = 2238) 2.26 RATIO Mick BarbaHEMOGLOBIN [id number] 00:00:00* Test Item Value Reference Range Interpretation Comme nts HEMOGLOBIN A1c (test code = 00797) 5.2 % Mick BarbaPOCT MOLECULAR [id number] 14:28:19* Test Item Value Reference Range Interpretation Comme nts POCT Molecular Strep (test c ode = 69009-0) Negative Negative Lab Interpretation (test cod e = 52904-9) Normal [facility] Notes Date/Time Note Provider Source Mick Arroyo [facility]
[2025-04-08 19:59] LABS: Absolute Lymphocytes (CBC) 1.6 K/uL (0.7-4.9); Hematocrit 43.4 % (36.0-45.0); Hemoglobin 14.8 g/dL (12.0-15.0); MCH 27.4 pg (27.0-35.0); MCHC 34.0 g/dL (32.0-36.0); MCV 80.6 fL (80-100); MPV 8.8 fL (7.6-11.3); Nucleated RBC Absolute Count 0.0 (0-0); Nucleated Red Blood Cells % 0.2 % (0-0); RBC Red Blood Cell Count 5.38 M/uL (3.86-4.86); White Blood Count 14.20 thou/uL (4.3-10.9)
[2025-04-08 20:16] LABS: AST/SGOT 13 U/L (15-37); Albumin 3.8 g/dL (3.4-5.0); Albumin/Globulin Ratio 1.4 (1.1-1.8); Alkaline Phosphatase 44 U/L (45-117); Anion Gap 13.7 mEq/L (5.0-15.0); BUN Blood Urea Nitrogen 10 mg/dL (7-18); Globulin 2.8 g/dL (2.3-3.5); Glucose Level 125 mg/dL (74-106); Magnesium 1.8 mg/dL (1.6-2.4); Potassium 3.7 mEq/L (3.5-5.1)
[2025-04-08 20:17] LABS: ALT/SGPT < 14 U/L (13-56)
--- NOTE | 2025-04-08 20:51 | ER ---
Nurse's Notes [facility] Name: Jocy Mock Age: 34 yrs Sex: Female : 1990 Arrival Date: 04/08/2025 Time: 19:20 Bed 5 Private MD: Diagnosis: Hypophosphatemia;Weakness;Cramp and spasm Presentation: 04/08 19:28 Chief complaint: Patient states: I gave plasma around two this afternoon and started bm8 having really bad debilitating cramping. I was taken to a hospital in [place] and they said potassium was low replaced it and sent me home. Now the cramping is back and I cant unlock my hands. I hurt all over. Coronavirus screen: Vaccine status: At this time, the client does not indicate any symptoms associated with coronavirus-19. Ebola Screen: Patient negative for fever greater than or equal to 101.5 degrees Fahrenheit, and additional compatible Ebola Virus Disease symptoms Patient denies exposure to infectious person. Patient denies travel to an Ebola-affected area in the 21 days before illness onset. No symptoms or risks identified at this time. Initial Sepsis Screen: Does the patient meet any 2 criteria? No. Patient's initial sepsis screen is negative. Does the patient have a suspected source of infection? No. Patient's initial sepsis screen is negative. Risk Assessment: Do you want to hurt yourself or someone else? Patient reports no desire to harm self or others. Onset of symptoms was April 08, 2025 at 14:00. 19:28 Method Of Arrival: Wheelchair bm8 19:28 Acuity: MICHELLE 3 bm8 Triage Assessment: 19:30 General: Appears distressed, uncomfortable, Behavior is calm, cooperative, appropriate bm8 for age. Pain: Complains of pain in generalized Pain currently is 10 out of 10 on a pain scale. Quality of pain is described as aching, crampy. EENT: No deficits noted. No signs and/or symptoms were reported regarding the EENT system. Neuro: No deficits noted. Level of Consciousness is awake, alert, obeys commands, Oriented to person, place, time, situation, Appropriate for age. Cardiovascular: Denies chest pain, Heart tones S1 S2 present Capillary refill < 3 seconds in bilateral fingers Patient's skin is warm and dry. Respiratory: Airway is patent Respiratory effort is even, unlabored, Respiratory pattern is regular, symmetrical, Breath sounds are clear bilaterally. GI: No deficits noted. No signs and/or symptoms were reported involving the gastrointestinal system. : No deficits noted. No signs and/or symptoms were reported regarding the genitourinary system. Derm: Skin is intact, Skin is clammy, diaphoretic, Skin is pink, warm \T\ dry. Skin temperature is warm. Musculoskeletal: Reports pain in all over Pain is 10 out of 10 on a pain scale. 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 - Infectious Disease History:: Denies. - Social history:: Smoking status: Patient denies any tobacco usage or history of. Patient/guardian denies using alcohol, street drugs. Screenin:22 [facility] ED Fall Risk Assessment (Adult) History of falling in the last 3 months, ha1 including since admission No falls in past 3 months (0 pts) Confusion or Disorientation No (0 pts) Intoxicated or Sedated No (0 pts) Impaired Gait No (0 pts) Mobility Assist Device Used No (0 pt) Altered Elimination No (0 pt) Score/Fall Risk Level 0 - 2 = Low Risk Oriented to surroundings, Maintained a safe environment, Educated pt \T\ family on fall prevention, incl call for assistance when getting out of bed, Hourly rounding (assess needs \T\ fall precautionary measures) done. Abuse screen: Denies threats or abuse. Denies injuries from another. Nutritional screening: No deficits noted. Tuberculosis screening: No symptoms or risk factors identified. Assessment: 19:30 General: Appears uncomfortable, Behavior is cooperative. Pain: Complains of pain in all ha1 over body Pain currently is 8 out of 10 on a pain scale. Neuro: Level of Consciousness is awake, alert, obeys commands, Oriented to person, place, time, situation. Cardiovascular: Capillary refill < 3 seconds Patient's skin is warm and dry. Respiratory: Airway is patent Respiratory effort is even, unlabored, Respiratory pattern is regular, symmetrical. GI: No signs and/or symptoms were reported involving the gastrointestinal system. Abdomen is round non-distended. : No signs and/or symptoms were reported regarding the genitourinary system. Derm: Skin is pink, warm \T\ dry. Musculoskeletal: Circulation, motion, and sensation intact. Range of motion: intact in all extremities. 20:40 Reassessment: Patient and/or family updated on plan of care and expected duration. Pain ha1 level reassessed. Patient is alert, oriented x 3, equal unlabored respirations, skin warm/dry/pink. Patient states feeling better. Patient states symptoms have improved. 21:15 Reassessment: No changes from previously documented assessment. Patient and/or family cc6 updated on plan of care and expected duration. Pain level reassessed. Patient is alert, oriented x 3, equal unlabored respirations, skin warm/dry/pink. Vital Signs: 19:28 BP 141 / 101; Pulse 115; Resp 19; Temp 98.5; Pulse Ox 100% ; Weight 59.87 kg; Height 4 bm8 ft. 11 in. ; Pain 10/10; 20:32 BP 105 / 68; Pulse 89; Pulse Ox 100% on R/A; ha1 21:15 BP 110 / 72; Pulse 79; Resp 18; Pulse Ox 100% on R/A; cc6 04/09 00:31 BP 104 / 77; Pulse 62; Resp 19; Pulse Ox 100% on R/A; kd3 04/08 19:28 Body Mass Index 26.66 (59.87 kg, 149.86 cm) bm8 04/08 19:28 Pain Scale: Adult [facility] ED Course: 04/08 19:21 Patient arrived in ED. im 19:21 Quyen Tuttle FNP-C is PHCP. kb 19:21 Darcy Herring MD is Attending Physician. kb 19:22 Patient has correct armband on for positive identification. Bed in low position. Call ha1 light in reach. Side rails up X2. Client placed on continuous cardiac and pulse oximetry monitoring. NIBP monitoring applied. laboratory aide on. 19:23 Janee Garcia, DORI is Primary Nurse. kd3 19:30 Triage completed. bm8 19:30 Arm band placed on right wrist. bm8 19:45 Inserted saline lock: 20 gauge in right antecubital area, using aseptic technique. ha1 Blood collected. Flushed with 10 mL NS. 20:51 Manuel Ojeda MD is Hospitalizing Provider. kb 04/09 00:30 Provided Education on: Iv maintenance . kd3 00:30 No provider procedures requiring assistance completed. Patient admitted, IV remains in kd3 place. Administered Medications: 04/08 21:21 Drug: Potassium Phosphate IV 15 mmol IV at calculated rate once; dose as phosphate; ha1 infuse over 4-6 hours (mix in 250 mL NS) Route: IV; Rate: calculated rate; Site: right antecubital; 22:01 Drug: NS 0.9% IV 1000 ml IV at 1000 ml once; to be given as a bolus over 60 minutes ha1 Route: IV; Rate: 1000 ml; Site: right antecubital; Medication: 20:13 VIS not applicable for this client. ha1 Outcome: 20:51 Decision to Hospitalize by Provider. kb 04/09 00:30 Admitted to Med/surg accompanied by nurse, via wheelchair, kd3 Condition: stable 00:31 Patient left the ED. kd3 Signatures: Quyen Tuttle, APPRENTICE COSMETOLOGIST-C APPRENTICE COSMETOLOGIST-CkJanee Schwartz, RN RN kd3 Lesli Barrientos, RN RN ha1 Rebecca Dinh Brad, RN RN bm8 Zeynep Acevedo, DORI RN cc6
--- NOTE | 2025-04-08 20:52 | EDPHYS ---
Physician Documentation [facility] Name: Jocy Mock Age: 34 yrs Sex: Female : 1990 Arrival Date: 04/08/2025 Time: 19:20 Bed 5 Private MD: ED Physician Darcy Herring HPI: 04/08 21:47 This 34 yrs old Female presents to ER via Wheelchair with complaints of Pain All Over, kb Dehydration, Numbness. 21:47 Patient is a 34-year-old female who presents for generalized weakness, muscle cramps kb and numbness all over that started just prior to arrival. States she had similar symptoms earlier today while giving plasma, was sent to the [place] ER via EMS. States she received IV potassium at [place] [facility] due to hypokalemia and then was discharged. States that symptoms returned on the way home so she came here.. 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 - Infectious Disease History:: Denies. - Social history:: Smoking status: Patient denies any tobacco usage or history of. Patient/guardian denies using alcohol, street drugs. ROS: 21:45 Constitutional: As per HPI kb Exam: 19:58 Constitutional: This is a well developed, well nourished patient who is awake, alert, kb and in no acute distress. Head/Face: Normocephalic, atraumatic. ENT: Moist Mucous membranes Cardiovascular: Regular rate Respiratory: Respirations even and unlabored. No increased work of breathing. Talking in full sentences Abdomen/GI: Soft, non-tender. No distention Skin: Warm, dry with normal turgor. Normal color. MS/ Extremity: Pulses equal, no cyanosis. Neurovascular intact. Full, normal range of motion. Neuro: Awake and alert, GCS 15, oriented to person, place, time, and situation. 19:58 ECG was reviewed by the Attending Physician. 21:45 Neuro: Motor: moves all fours, strength is 4/5 in the right arm, left arm, right leg kb and left leg, Vital Signs: 19:28 BP 141 / 101; Pulse 115; Resp 19; Temp 98.5; Pulse Ox 100% ; Weight 59.87 kg; Height 4 bm8 ft. 11 in. ; Pain 10/10; 20:32 BP 105 / 68; Pulse 89; Pulse Ox 100% on R/A; ha1 21:15 BP 110 / 72; Pulse 79; Resp 18; Pulse Ox 100% on R/A; cc6 04/09 00:31 BP 104 / 77; Pulse 62; Resp 19; Pulse Ox 100% on R/A; kd3 04/08 19:28 Body Mass Index 26.66 (59.87 kg, 149.86 cm) bm8 04/08 19:28 Pain Scale: Adult bm8 MDM: 04/08 19:21 Medical Screening Exam initiated kb 21:46 Differential diagnosis: Dehydration, abnormal electrolytes, arrhythmia, generalized kb weakness. Data reviewed: vital signs, nurses notes. Consideration of Admission/Observation Patient was admitted/placed on observation. Escalation of care including admission/observation considered. Management of patient was discussed with the following: Hospitalist: SELENA Lopez accepts pt for admission under Dr Ojeda. Historians other than the Patient: Spouse/Significant Other: . Counseling: I had a detailed discussion with the patient and/or guardian regarding the historical points, exam findings, and any diagnostic results supporting the discharge/admit diagnosis, lab results, the need for further work-up and treatment in the hospital. 04/08 19:26 Order name: CBC with Diff; Complete Time: 22:39 kb 04/08 19:26 Order name: CMP; Complete Time: 20:19 kb 04/08 19:26 Order name: Magnesium; Complete Time: 20:19 kb 04/08 19:26 Order name: Phosphorus; Complete Time: 20:19 kb 04/08 21:22 Order name: UA Rfx Guillermo Cult if indicated; Complete Time: 21:59 ha1 04/08 21:46 Order name: Manual Differential; Complete Time: 22:39 EDMS 04/08 23:20 Order name: CBC with Automated Diff EDMS 04/08 23:20 Order name: CBC with Automated Diff EDMS 04/08 23:20 Order name: Comprehensive Metabolic Panel EDMS 04/08 23:20 Order name: Comprehensive Metabolic Panel EDMS 04/08 23:20 Order name: Magnesium [facility] 04/08 23:20 Order name: Magnesium [facility] 04/08 19:26 Order name: IV Start; Complete Time: 19:48 kb 04/08 19:55 Order name: EKG - Nurse/Tech; Complete Time: 19:55 rv1 EC:58 Rate is 90 beats/min. Rhythm is regular. QRS [place] is Normal. IA interval is normal at kb 132 msec. QRS interval is normal at 76 msec. QT interval is normal at 479 msec. Administered Medications: 21:21 Drug: Potassium Phosphate IV 15 mmol IV at calculated rate once; dose as phosphate; ha1 infuse over 4-6 hours (mix in 250 mL NS) Route: IV; Rate: calculated rate; Site: right antecubital; 22:01 Drug: NS 0.9% IV 1000 ml IV at 1000 ml once; to be given as a bolus over 60 minutes ha1 Route: IV; Rate: 1000 ml; Site: right antecubital; Disposition Summary: 04/08/25 20:51 Hospitalization Ordered Notes: Hospitalization Status: Observation kb Provider: Manuel Ojeda Location: Telemetry/MedSurg (observation) kb Condition: Stable kb Problem: new kb Symptoms: are unchanged kb Bed/Room Type: Standard Room Assignment: 426(04/08/25 23:17) [facility] Diagnosis - Hypophosphatemia kb - Weakness kb - Cramp and spasm kb Forms: - Medication Reconciliation Form kb - SBAR form kb - Leadership Thank You Letter kb Signatures: Dispatcher [employer] [facility] Quyen Tuttle, TIMBER FRAMER HELPER-C TIMBER FRAMER HELPER-Lesli Alejo, RN RN ha1 Kanchan Bragg rv1 Marilyn Thompson [facility] Ed Ramirez, RN RN bm8 Corrections: (The following items were deleted from the chart) 21:23 21:23 UA Rfx Guillermo Cult if indicated+U.LAB.BRZ ordered. [facility] 21:46 19:58 Constitutional: This is a well developed, well nourished patient who is awake, kb alert, and in no acute distress. Head/Face: Normocephalic, atraumatic. ENT: Moist Mucous membranes Cardiovascular: Regular rate Respiratory: Respirations even and unlabored. No increased work of breathing. Talking in full sentences Abdomen/GI: Soft, non-tender. No distention Skin: Warm, dry with normal turgor. Normal color. MS/ Extremity: Pulses equal, no cyanosis. Neurovascular intact. Full, normal range of motion. Neuro: Awake and alert, GCS 15, oriented to person, place, time, and situation. kb 23:17 20:51 kb [facility]
[2025-04-08] MEDS: POTASSIUM PHOS IN 0.9 % NACL 15 MMOL/250 ML BAG IV ONE (21:01)
[2025-04-08] MEDS ORDERED: NA CHLORIDE 0.9% 500 ML ONE (21:09)
[2025-04-08 21:55] LABS: Sqamous Epithelial <5 /HPF (None Seen); Urine Culture Reflex Order NOT NEEDED; Urine Microscopic Reflex YN ORDER UMIC
[2025-04-08 22:33] LABS: Blood Morphology Comment NOT SEEN (NOT SEEN); Differential Total Cells Count 100; Segmented Neutrophils 55 % (40-80)
[2025-04-08] MEDS ORDERED: ONDANSETRON 4 MG/2 ML VIAL IV PRN (23:15)
--- NOTE | 2025-04-08 23:19 | P.HP ---
Certification for Inpatient Patient admitted to: Observation With expected LOS: <2 Midnights Patient will require the following post-hospital care: None Practitioner: I am a practitioner with admitting privileges, knowledge of patient current condition, hospital course, and medical plan of care. Services: Services provided to patient in accordance with Admission requirements found in Title 42 Section 412.3 of the Code of Federal Regulations Patient History Date of Service: 04/08/25 Reason for admission: Generalized weakness with acute hypophosphatemia of 1.4. History of Present Illness: Patient is a pleasant 34-year-old female with past medical history of anxiety, ADHD, who presents to ER complaining of generalized body weakness, and muscle cramping. Patient states she went and donated some plasma today, states towards the end of donating the plasma she became so weak, states she could not move her limbs, and she could not ambulate. Patient states she was then transferred to [place] [facility], at the time her potassium was low, states they repleted her potassium, states she felt much better and she was then discharged. Patient states while she was driving home she became very weak again with muscle cramping and she then decided to report to ER . During admission assessment, inquired from the patient if she drank a lot of water prior to donating the plasma, patient states she did not drink any water or eat anything prior to donation. It appears patient was hypovolemic which resulted to patient presenting symptoms. Workup in ER hypophosphatemia of 1.4. During admission assessment, patient was back to her normal self, she had no focal or sensory deficits identified at this time, patient had equal strength in bilateral lower and upper extremities. Denies of any discomfort at this time. Patient states she was able to ambulate to the restroom without difficulty. Patient admitted for observation and IV fluid infusion. Allergies No Known Drug Allergies Allergy (Verified 06/18/15 00:59) Unknown Home Medications: Atomoxetine HCl 40 mg PO DAILY 04/09/25 Sertraline HCl [Zoloft] 50 mg PO DAILY 04/09/25 - Past Medical/Surgical History Diabetic: No -: Anxiety. -: ADHD. -: - Family History Father -: Heart disease, Hypertension, Diabetes Mother -: Cancer - Social History Smoking Status: Never smoker Alcohol use: No CD- Drugs: No Caffeine use: Yes Place of Residence: Home Review of Systems 10-point ROS is otherwise unremarkable General: Weakness Physical Examination - Physical Exam General: Alert, In no apparent distress, Oriented x3 HEENT: Atraumatic, Normocephalic, PERRLA, Mucous membr. moist/pink, Sclerae nonicteric Neck: Supple, 2+ carotid pulse no bruit, JVD not distended, No Thyromegaly, Without JVD or thyroid abnormality Respiratory: Clear to auscultation bilaterally, Normal air movement Cardiovascular: No edema, Normal pulses, Regular rate/rhythm, Normal S1 S2, Abnormal S3, No gallops, No rubs, No murmurs Capillary refill: <2 Seconds Gastrointestinal: Normal bowel sounds, Hypoactive, Soft and benign, Non- distended, W/out hepatomegaly, No ascites, No tenderness, No masses, No rebound, No guarding Musculoskeletal: No clubbing, No swelling, No contractures, No erythema, No tenderness, No warmth Integumentary: No rashes, No breakdown, No significant lesion, No tenderness/swelling, No erythema, No warmth, No cyanosis Neurological: Normal gait, Normal speech, Normal strength at 5/5 x4 extr, Normal tone, Sensation intact, Cranial nerves 3-12 intact, Normal reflexes 2+, Normal affect Lymphatics: No axilla or inguinal lymphadenopathy - Studies Laboratory Data (last 24 hrs) 04/08/25 04/08/25 19:52 19:52 WBC 14.20 H Hgb 14.8 Hct 43.4 Plt Count 357 Sodium 137 Potassium 3.7 BUN 10 Creatinine 0.71 Glucose 125 H Phosphorus 1.4 L* Magnesium 1.8 Total Bilirubin 2.1 H AST 13 L ALT < 14 Alkaline Phosphatase 44 L Female Exam - Breasts Breasts: Normal configuration, Normal contours, Symmetrical Assessment and Plan - Plan Patient admitted to observation with diagnosis of hypophosphatemia of 1.4. Presently patient does not have any symptoms. (1)Hpophosphatemia 1.4. Patient started on potassium phosphate 15Mmol/250 x 1. -Follow labs in the morning. -IV NS at 100/ hr x 1 L. -Follow-up CMP in the morning. (2) DVT prophylaxis. -Lovenox 40 mg subcu daily. (3)Explained entire treatment plan to the patient and dad present at the bedside, solicited questions answered and voiced understanding. Discharge Plan: Home Plan to discharge in: 48 Hours - Advance Directives Does patient have a Living Will: No Does patient have a Durable POA for Healthcare: No - Code Status/Comfort Care Code Status Assessed: Yes Code Status: Full Code Critical Care: No Time Spent Managing Pts Care (In Minutes): 55
[2025-04-09 00:31] VITALS: BMI 26.6
[2025-04-09] MEDS: NA CHLORIDE 0.9% 1,000 ML IV SCH (00:49)
[2025-04-09 01:34] VITALS: O2SAT 100
[2025-04-09 06:52] LABS: Absolute Lymphocytes (CBC) 1.5 K/uL (0.7-4.9); Hematocrit 32.6 % (36.0-45.0); Hemoglobin 11.5 g/dL (12.0-15.0); MCH 28.5 pg (27.0-35.0); MCHC 35.2 g/dL (32.0-36.0); MCV 81.1 fL (80-100); MPV 9.0 fL (7.6-11.3); Nucleated RBC Absolute Count 0.0 (0-0); Nucleated Red Blood Cells % 0.2 % (0-0); RBC Red Blood Cell Count 4.02 M/uL (3.86-4.86); White Blood Count 5.80 thou/uL (4.3-10.9)
[2025-04-09 06:57] LABS: Albumin 2.7 g/dL (3.4-5.0); Albumin/Globulin Ratio 1.2 (1.1-1.8); Alkaline Phosphatase 33 U/L (45-117); Anion Gap 6.9 mEq/L (5.0-15.0); BUN Blood Urea Nitrogen 8 mg/dL (7-18); Globulin 2.3 g/dL (2.3-3.5); Glucose Level 105 mg/dL (74-106); Magnesium 1.9 mg/dL (1.6-2.4); Potassium 3.9 mEq/L (3.5-5.1)
[2025-04-09 07:01] LABS: ALT/SGPT < 14 U/L (13-56); AST/SGOT < 10 U/L (15-37)
[2025-04-09] MEDS: ENOXAPARIN 40 MG/0.4 ML SQ SCH (09:19)
--- NOTE | 2025-04-09 11:00 | P.DS ---
Admission Date: 04/08/25 Discharge Date: 04/09/25 Disposition: ROUTINE DISCHARGE Discharge Condition: FAIR Reason for Admission: Generalized weakness with acute hypophosphatemia of 1.4. Brief History of Present Illness: 34-year-old female with past medical history of anxiety, ADHD, who presents to ER complaining of generalized body weakness, and muscle cramping. Patient reported generalized weakness after donating plasma. She was transferred to [place] ER, where evaluation showed her potassium was low, potassium replaced and she was discharged. However she felt very weak again with muscle cramping during her drive home so she presented here for further evaluation. Workup in ER showed hypophosphatemia of 1.4. During admission assessment, patient noted to have no focal motor deficit no weakness, back to baseline and able to ambulate without difficulty. Patient hospitalized for severe hypophosphatemia for electrolyte replacement. Hospital Course: Diagnosis Generalized weakness Hypophosphatemia Patient placed on observation on the medical floor. Her phosphate was replaced to normal. Patient asymptomatic during the hospital stay. She currently has stable vitals, ambulatory with no issues and tolerating diet. Patient is deemed stable for discharge. Vital Signs/Physical Exam: Temp Pulse Resp BP Pulse Ox 98.4 F 79 18 118/57 L 98 04/09/25 08:00 04/09/25 08:00 04/09/25 08:00 04/09/25 08:00 04/09/25 08:00 General: Alert, In no apparent distress, Oriented x3 HEENT: Mucous membr. moist/pink, Sclerae nonicteric Neck: Supple, JVD not distended Respiratory: Clear to auscultation bilaterally, Normal air movement Cardiovascular: No edema, Regular rate/rhythm, Normal S1 S2 Capillary refill: <2 Seconds Gastrointestinal: Normal bowel sounds, Soft and benign, Non-distended, No tenderness Musculoskeletal: No swelling Integumentary: No rashes, No cyanosis Neurological: Normal speech, Normal strength at 5/5 x4 extr, Cranial nerves 3-12 intact Laboratory Data at Discharge: WBC 5.80 thou/uL (4.3-10.9) 04/09/25 06:00 Hgb 11.5 g/dL (12.0-15.0) L D 04/09/25 06:00 Hct 32.6 % (36.0-45.0) L 04/09/25 06:00 Plt Count 189 thou/uL (152-406) D 04/09/25 06:00 Sodium 143 mEq/L (136-145) D 04/09/25 06:00 Potassium 3.9 mEq/L (3.5-5.1) 04/09/25 06:00 BUN 8 mg/dL (7-18) 04/09/25 06:00 Creatinine 0.63 mg/dL (0.55-1.02) 04/09/25 06:00 Glucose 105 mg/dL (74-106) 04/09/25 06:00 Phosphorus 3.5 mg/dL (2.5-4.9) 04/09/25 06:00 Magnesium 1.9 mg/dL (1.6-2.4) 04/09/25 06:00 Total Bilirubin 1.5 mg/dL (0.2-1.0) H 04/09/25 06:00 AST < 10 U/L (15-37) L 04/09/25 06:00 ALT < 14 U/L (13-56) 04/09/25 06:00 Alkaline Phosphatase 33 U/L (45-117) L D 04/09/25 06:00 Home Medications: Atomoxetine HCl 40 mg PO DAILY 04/09/25 Sertraline HCl [Zoloft] 50 mg PO DAILY 04/09/25 Diet: Regular Activity: Ad oscar Followup: NONE,NONE [Primary Care Provider] - 1-2 Weeks Time spent managing pt's care (in minutes): 25
[2025-04-09 12:39] VITALS: BP 112/70; TEMP 98.7
== END 2025-04-09 12:48 | disposition home or self-care (01) ==
LOC: ER 19:20 → 4TH 23:13
PROVIDERS: ADMIT Internal Medicine; ATTEND Internal Medicine
DX: R53.1 Weakness (principal); E83.39 Other disorders of phosphorus metabolism; F41.9 Anxiety disorder, unspecified; F90.9 Attention-deficit hyperactivity disorder, unspecified type; R25.2 Cramp and spasm
CPT/HCPCS: 36415; 80053; 81001; 83735; 84100; 85025; 93005; 96374; 99285; G0378; J1650; J7030; J7040